=== PATIENT | female | born 1995 | race Two or more races ===

== ENCOUNTER 2019-04-04 00:11 | Emergency (ER) | payer OTHER, SELFPAY ==
[~2019-04-04] VITALS: Ht 172.7 cm; Wt 103.3 kg
[2019-04-04] MEDS ORDERED: DIPHENHYDRAMINE 50 MG/ML, 1ML IVPush ONE (01:00)
[2019-04-04] MEDS ORDERED: PLEASE ENTER ALLERGIES MC SCH (01:00)
[2019-04-04] MEDS ORDERED: PROCHLORPERAZINE 5 MG/ML, 2ML IVPush ONE (01:00)
[2019-04-04] MEDS ORDERED: KETOROLAC 30 MG/1 ML IVPush ONE (01:00)
[2019-04-04] MEDS ORDERED: ACETAMINOPHEN 325 MG TABLET PO ONE (01:00)
[2019-04-04] MEDS ORDERED: SODIUM CHLORIDE FLUSH 10ML SYR IVF ONE (01:00)
[2019-04-04] MEDS ORDERED: SODIUM CHLORIDE 0.9% 1,000ML IVBOLUS ONE (01:00)
[2019-04-04] MEDS ORDERED: PROCHLORPERAZINE 5 MG/ML, 2ML ONE (01:02)
[2019-04-04] MEDS ORDERED: ACETAMINOPHEN 325 MG TABLET ONE (01:03)
[2019-04-04] MEDS ORDERED: DIPHENHYDRAMINE 50 MG/ML, 1ML ONE (01:03)
[2019-04-04] MEDS ORDERED: KETOROLAC 30 MG/1 ML ONE (01:03)
[2019-04-04] MEDS ORDERED: ASPI1TAB31 PO (01:10)
--- NOTE | 2019-04-04 01:23 | NUR ---
PT IN HOSPITAL GOWN. PT ON VITALS MONITORS. VSS, SEE CHARTED. IV STARTED. ORDERED MEDS AND IV FLUIDS INFUSING AT THIS TIME. BILAT BEDRAILS UP. CALL LIGHT WITHIN REACH. WILL CONTINUE TO MONITOR.
--- NOTE | 2019-04-04 01:40 | NUR ---
PT STATED SHE FEELS ANXIOUS AFTER MEDS. PT JUST MEDICATED. NO SIGNS OF ALLERGIES AT THIS TIME. PT DENIED ANY ALLERGIES TO MEDS. WILL CONTINUE TO MONITOR.
--- NOTE | 2019-04-04 01:55 | NUR ---
PT RESTING CALMLY IN BED. VSS, SEE CHARTED. CALL LIGHT WITHIN REACH. WILL CONTINUE TO MONITOR.
[2019-04-04 02:20] VITALS: BP 128/74
== END 2019-04-04 03:12 | disposition home or self-care (01) ==
LOC: ED 03:00
DX: G43.919 Migraine, unspecified, intractable, without status migrainosus (principal); R11.2 Nausea with vomiting, unspecified
CPT/HCPCS: 96361; 96374; 96375; 99283; J0780; J1200; J1885; J7030